=== PATIENT | male | born 1985 | race Caucasian/White ===

== ENCOUNTER 2017-03-05 18:14 | Emergency (ER) | payer SELFPAY ==
[~2017-03-05] VITALS: Ht 175.3 cm; Wt 62.7 kg
[2017-03-05] MEDS ORDERED: EPIPEN ADU0.3 MG/0.3 IM (21:18)
[2017-03-05] MEDS ORDERED: BENADRYL25 MG PO (21:18)
[2017-03-05 21:28] VITALS: BP 106/57
== END 2017-03-05 21:29 | disposition home or self-care (01) ==
LOC: EME 18:14
DX: T63.441A Toxic effect of venom of bees, accidental (unintentional), initial encounter (principal); T78.2XXA Anaphylactic shock, unspecified, initial encounter; L50.9 Urticaria, unspecified; R11.2 Nausea with vomiting, unspecified; F17.200 Nicotine dependence, unspecified, uncomplicated
CPT/HCPCS: 99281; 99285; J1200; J2930; J7030